=== PATIENT | male | born 2000 | race Caucasian/White ===

== ENCOUNTER 2024-02-04 19:48 | Emergency (ER) | payer OTHER, SELFPAY ==
[2024-02-04 19:51] VITALS: BP 135/77; PULSE 98; RESP 20; TEMP 36.6; O2SAT 100
--- NOTE | 2024-02-04 23:00 | ED.GENADULT ---
HPI - General Adult General Chief complaint: Unspecified Stated complaint: foreign body stuck in throat/painful swallowing Time Seen by Provider: 02/04/24 21:37 History of Present Illness HPI narrative: This is a 24-year-old male presenting with painful swallowing. Patient swallowed a doxycycline 5 days ago and believes that got caught in his throat. Since then he has developed pain on swallowing. Worse with solids greater than liquids. He has not taken anything for pain control. He is swallowing his own secretions. No fevers. Related Data Allergies Allergy/AdvReac Type Severity Reaction Status Date / Time No Known Allergies Allergy Verified 02/04/24 21:24 Exam Narrative: APPEARANCE: No apparent distress. Nontoxic appearing. Speaking in normal voice Head: atraumatic. Erythema of the posterior oropharynx EYES: EOMI, NOSE: Atraumatic NECK: Trachea midline RESPIRATORY: No increased rate of breathing clear to auscultation CARDIOVASCULAR: RRR, no pericardial friction rub ABDOMINAL: Non-distended MUSCULOSKELETAl: No obvious deformities NEURO: Alert. Moving 4/4 extremities SKIN:: Warm, dry. Normal color PSYCHIATRIC: Normal affect Course Vital Signs Vital signs: Vital Signs Temperature 98 F 02/04/24 19:51 Pulse Rate 98 02/04/24 19:51 Respiratory Rate 20 02/04/24 19:51 Blood Pressure 135/77 02/04/24 19:51 Pulse Oximetry 100 02/04/24 19:51 Oxygen Delivery Room Air 02/04/24 19:51 Temperature 98 F 02/04/24 19:51 Pulse Rate 98 02/04/24 19:51 Respiratory Rate 20 02/04/24 19:51 Blood Pressure 135/77 02/04/24 19:51 Pulse Oximetry 100 02/04/24 19:51 Oxygen Delivery Room Air 02/04/24 19:51 Medical Decision Making [facility] Narrative Medical decision making narrative: -Course: 24-year-old male presenting with painful swallowing. Likely pill esophagitis from doxycycline. Patient is nontoxic appearing with stable vital signs. No concern for esophageal rupture. Patient will be treated with Maalox and pain medication. Given follow-up with GI physician. Given return precautions. -DDX includes but is not limited to: Pill esophagitis, GERD, thrush -Interventions: Maalox, Toradol -Shared decision making / Disposition: Discharged -RX Motrin, Tylenol Vital Signs Vital Signs: Vital Signs Temperature 98 F 02/04/24 19:51 Pulse Rate 98 02/04/24 19:51 Respiratory Rate 20 02/04/24 19:51 Blood Pressure 135/77 02/04/24 19:51 Pulse Oximetry 100 02/04/24 19:51 Oxygen Delivery Room Air 02/04/24 19:51 Temperature 98 F 02/04/24 19:51 Pulse Rate 98 02/04/24 19:51 Respiratory Rate 20 02/04/24 19:51 Blood Pressure 135/77 02/04/24 19:51 Pulse Oximetry 100 02/04/24 19:51 Oxygen Delivery Room Air 02/04/24 19:51 Discharge Plan Discharge Clinical Impression: Pill esophagitis due to tetracycline Patient Disposition: Home, Self-Care Condition: Stable Instructions: Antibiotic Form, Esophagitis (ED) Additional Instructions: You seen in the ED for painful swallowing. This is likely irritation from the doxycycline he swallowed. Please make sure you are drinking and 8 oz glass of water after you take any pills. You can use a barrier liquid like Maalox/pepto bismo for pain. Please complete a course of pepcid. You can also use tylenol for pain. Please follow-up with the GI physician listed below. Return if you develop fevers, severe chest pain, difficulty breathing, or started vomiting blood. Prescriptions: New bismuth subsalicylate [Anti-Diarrheal] 262 mg/15 mL suspension 524 mg PO Q1H PRN (Reason: esophag) Qty: 236 0RF Rx Instructions: do not exceed 8 doses in a 24 hour period acetaminophen 500 mg tablet 1,000 mg PO TID PRN (Reason: jamal) 7 Days Qty: 42 0RF famotidine [Pepcid] 20 mg tablet 20 mg PO BID 42 Days Qty: 84 0RF Follow-up/Referrals: PHYSICIAN,RESIDENTIAL CONCIERGE [Primary Care Provider] - Mina
[2024-02-04] MEDS: KETOROLAC 30 MG/ML VIAL (*BKC) IM (23:13)
[2024-02-04] MEDS: MAG HYDROX/AL HYDROX/SIMETH 30 ML UDC PO (23:13)
[2024-02-04 23:30] VITALS: BP 130/80; PULSE 89; RESP 18; O2SAT 100
== END 2024-02-04 23:35 | disposition home or self-care (01) ==
PROVIDERS: Emergency Provider Emergency Medicine
DX: T17.298A Other foreign object in pharynx causing other injury, initial encounter (principal); K20.90 Esophagitis, unspecified without bleeding
CPT/HCPCS: 96372; 99283; A9270; J1885